=== PATIENT | female | born 1970 | race Two or more races ===

== ENCOUNTER 2019-10-06 08:01 | Emergency (ER) | payer MEDICAID ==
[~2019-10-06] VITALS: Ht 157.5 cm; Wt 89.9 kg
[2019-10-06] MEDS ORDERED: BENZ-16 PO (09:05)
[2019-10-06] MEDS ORDERED: AZIT250T83 PO (09:05)
[2019-10-06] MEDS ORDERED: ROBCFL PO (09:05)
[2019-10-06] MEDS ORDERED: ALBU18HF2 INH (09:05)
[2019-10-06 09:53] VITALS: BP 136/91
== END 2019-10-06 09:55 | disposition home or self-care (01) ==
LOC: ER 08:02
DX: R05 Cough (principal); R50.9 Fever, unspecified; R61 Generalized hyperhidrosis; M54.9 Dorsalgia, unspecified; Z88.0 Allergy status to penicillin; Z79.899 Other long term (current) drug therapy
CPT/HCPCS: 99283